=== PATIENT | female | born 1955 | race Caucasian/White ===

== ENCOUNTER 2024-05-29 12:00 | Outpatient (CLI) | payer BC, SELFPAY ==
--- NOTE | 2024-05-29 13:15 | W.ANESCHARGE ---
Anesthesia Charges Start Date/Time Anesthesia Start Date: 05/29/24 Anesthesia Start Time: 13:25 Stop Date/Time Anesthesia Stop Date: 05/29/24 Anesthesia Stop Time: 14:03
--- NOTE | 2024-05-29 14:33 | W.ANESCHARGE ---
Anesthesia Charges Start Date/Time Anesthesia Start Date: 05/29/24 Anesthesia Start Time: 13:25 Stop Date/Time Anesthesia Stop Date: 05/29/24 Anesthesia Stop Time: 14:03
== END 2024-05-29 12:01 | disposition home or self-care (01) ==
LOC: OP CLINIC 12:01
PROVIDERS: PCP Family Medicine; Visit Provider Internal Medicine Gastroenterology
DX: R19.5 Other fecal abnormalities (principal); D12.2 Benign neoplasm of ascending colon; D12.8 Benign neoplasm of rectum; K57.30 Diverticulosis of large intestine without perforation or abscess without bleeding
CPT/HCPCS: 00811; 45385; 88305; J2704

== ENCOUNTER 2025-05-31 11:25 | Day surgery (SDC) | payer BC, SELFPAY ==
[2025-05-31] VITALS (22 sets, daily range): BP systolic 92–149; BP diastolic 59–99; PULSE 54–72; RESP 14–24; TEMP 35.9–36.7; O2SAT 92–99; BMI 40.8
[2025-05-31] MEDS: TRANEXAMIC ACID 100 MG/ML INJ 1000 MG IV (11:41)
[2025-05-31] MEDS: SODIUM CHLORIDE 0.9 % (FLUSH) 10 ML SYRINGE IVF (12:30)
[2025-05-31] MEDS: ACETAMINOPHEN 500 MG TABLET 1000 MG PO ×2 (12:35→18:52)
[2025-05-31] MEDS: LACTATED RINGERS 1000 ML 1,000 ML 100 ML IV (12:35)
[2025-05-31] MEDS: OXYCODONE (CR) 10 MG TAB.ER.12H PO (12:35)
--- NOTE | 2025-05-31 13:06 | W.PM.H&PU ---
History & Physical Update History & Physical Update H&P Reviewed and patient assessed: No changes noted
--- NOTE | 2025-05-31 13:07 | CRLHL7_ITS ---
For Patients: As a result of the Cures Act, medical imaging exams and procedure reports are released immediately into your electronic medical record. You may view this report before your referring provider. If you have questions, please contact your health care provider. INDICATION: Total knee arthroplasty, post operative TECHNIQUE: Knee radiograph 2 views left COMPARISON: 04/23/2025 FINDINGS: Bone: No acute fractures or aggressive bone lesions are identified. Joint: The patient is status post a total knee arthroplasty with patellar resurfacing. No significant knee effusion is seen. Soft tissue: Anterior skin, subcutaneous gas and joint gas are present from recent surgery. No radiopaque foreign bodies are seen. IMPRESSION: 1. There is an unremarkable postoperative appearance of the knee arthroplasty. Dictated by: Zac Izquierdo MD @ 06/03/2025 07:54:51 (Electronically Signed)
[2025-05-31] MEDS: MIDAZOLAM HCL 1 MG/ML inj IVP (13:10)
--- NOTE | 2025-05-31 13:33 | SUR.PREOP ---
TIME?OUT:?1308 PT/RN/MDA?VERIFICATION?OF?SURGICAL?SITE,?PROCEDURE,?AND?CONSENT OBTAINED?PRIOR?TO?INVASIVE?PROCEDURE. all in agreement.
[2025-05-31] MEDS: LACTATED RINGERS 1000 ML 1,000 ML 125 ML IV (14:00)
--- NOTE | 2025-05-31 14:39 | P.ANES_ITS ---
Anesthesia Charges Start Date/Time Anesthesia Start Date: 05/31/25 Anesthesia Start Time: 13:16 Stop Date/Time Anesthesia Stop Date: 05/31/25 Anesthesia Stop Time: 15:33 Coding CPT Codes CPT Codes: ANESTH KNEE ARTHROPLASTY - 53186 ([id number]) P3 - PATIENT W/SEVERE SYS DISEASE, QK - GLAZE HANDLER 2-4 CNCRNT ANES PROC, QX - DEMOLITION HAMMER OPERATOR SVC W/ MD MED DIRECTION
--- NOTE | 2025-05-31 14:39 | W.ANESCHARGE ---
Anesthesia Charges Start Date/Time Anesthesia Start Date: 05/31/25 Anesthesia Start Time: 13:16 Stop Date/Time Anesthesia Stop Date: 05/31/25 Anesthesia Stop Time: 15:33 Coding CPT Codes CPT Codes: ANESTH KNEE ARTHROPLASTY - 70530 ([id number]) P3 - PATIENT W/SEVERE SYS DISEASE, QK - CASING FINISHER AND STUFFER 2-4 CNCRNT ANES PROC, QX - FILTER PRESS TENDER SVC W/ MD MED DIRECTION
--- NOTE | 2025-05-31 14:40 | W.PM.NB ---
Nerve Block Nerve Block Time Seen by Provider: 13:10 Date Seen: 05/31/25 Type of block requested by surgeon for post-operative analgesia: adductor canal Side: left Time out performed: Yes Verification of patient name: Yes Verification of date of : Yes Site marking: site marked Name of person performing procedure: Maurice Continuous monitoring Was continuous monitoring of O2 sat, B/P, cardiac cath technologist, recorded every 15 minutes?: Yes Procedure Checklist: sterile prep, needles and gloves Ultrasound guided. Images saved: Yes Medications given in 5ml increments after negative aspiration: Marcaine %: 0.25 mL: 15 Needle gauge: 20 Precedex (mcg): 25 Patient tolerated procedure well: Yes Block Charges Block Charge (with Pro Fee): Femoral Nerve Use of Ultrasound Machine for Block: Yes- US Guidance/pain block
--- NOTE | 2025-05-31 14:40 | W.PM.NB ---
Nerve Block Nerve Block Time Seen by Provider: 13:10 Date Seen: 05/31/25 Type of block requested by surgeon for post-operative analgesia: geniculars Side: left Time out performed: Yes Verification of patient name: Yes Verification of date of : Yes Site marking: site marked Name of person performing procedure: Maurice Continuous monitoring Was continuous monitoring of O2 sat, B/P, monitoring analyst, recorded every 15 minutes?: Yes Procedure Checklist: sterile prep, needles and gloves Ultrasound guided. Images saved: Yes Medications given in 5ml increments after negative aspiration: Marcaine %: 0.25 mL: 9 Needle gauge: 25 Patient tolerated procedure well: Yes Block Charges Block Charge (with Pro Fee): Genicular Nerve Block
--- NOTE | 2025-05-31 15:22 | P.ORPRC_ITS ---
Procedure Note Date of procedure: 05/31/25 Procedure: PREOPERATIVE DIAGNOSIS: 1. Left knee osteoarthritis, primary, severe 2. Morbid obesity (BMI 40.9) POSTOPERATIVE DIAGNOSIS: 1. Left knee osteoarthritis, primary, severe 2. Morbid obesity (BMI 40.9) PROCEDURE: 1. Left total knee arthroplasty - subvastus; limited tourniquet; Modifier 22 worthy - 33% added difficulty and time for this case due to increased number of assistance and retractors and length of retractors and need for stemmed tibial component to aid in stabilization of the tibial component. SURGEON: Solomon Martinez MD. HELP DESK ANALYST: MAGUE Bowen - Of note, a skilled web press operator assistant was critical for this case to aid in patient positioning, tissue retraction, limb manipulation/positioning, and closure. ANESTHESIA: Spinal anesthetic EBL: 100 ml IMPLANTS: DePuy J&J all cemented TKA - Attune PS femur size 6 narrow Size 5 tibia ([id number] stem) 5 poly spacer 38mm patella TOURNIQUET: 30 min at 250 torr COMPLICATIONS: None evident INDICATIONS: The patient is a pleasant 70-year-old female who has experienced severe left knee pain and difficulty bearing weight. Workup included x-rays which revealed severe osteoarthrosis in the knee. Given the deformity, the dysfunction, and the pain, as well as the failure of nonoperative management, recommendation was made for surgery. FINDINGS: Full-thickness chondral loss throughout the medial and patellofemoral compartment to lesser degree lateral compartment. Degenerative meniscus pathology medial greater than lateral. Large effusion upon entering joint. Abundant synovitis noted throughout the knee. DESCRIPTION OF PROCEDURE: Following a thorough discussion of risks, benefits, and alternatives consent was obtained and the left knee was marked. The patient was brought to the operating room and placed supine on the operating table. Induction of anesthesia was undertaken. 3 g IV Ancef and 1 g tranexamic acid was administered within 1 hr of incision preoperatively. Proper time-out was performed identifying proper patient, site, procedure. The operative extremity was prepped and draped in the appropriate sterile fashion using ChloraPrep after the patient was positioned supine with all bony prominences well padded. A longitudinal, anterior, midline skin incision was made starting approximately 3cm proximal to the superior pole of the patella and advanced distal to the tibial tubercle. A subvastus approach was utilized. A medial subperiosteal sleeve was created with knife, woodall elevator and curved osteotome. The retropatellar fatpad was resected and the synovium in the suprapatellar pouch excised to visualize the anterior femoral cortex. Femoral preparation was performed via an intramedullary guide. Step drill allowed access into the femoral canal. The distal cutting guide was placed with 5? of valgus and 10 mm cut on the distal femur. Femur was sized using a anterior referencing guide in 3? of external rotation. This found have a best fit with the sizing noted above. The 4 in 1 cutting block was then placed, and the distal femur shaped accordingly. The box cut was then created and the trial implant inserted to confirm appropriate fit. We turned our attention to the proximal tibia. Extramedullary guide was utilized for cutting with the goal of being 90 degree cut from the mechanical axis of the tibia in the varus/valgus plane utilizing tibial crest as the primary alignment. Initially a 2 mm resection was performed from the medial tibial plateau. Ultimately, balancing was achieved in both flexion and extension in both varus and valgus. The knee was able to achieve full extension as well comfortably. The patella was initially measured and found have a thickness of 21 mm. It was resected back to approximately 14 mm. It was sized to be a best fit with as noted above. This was drilled, trial placed. All trials were placed and found to have an excellent stability and balance. At this stage, trial implants were removed, the knee was thoroughly irrigated with normal saline, and the cement was mixed. After irrigation, the knee was thoroughly dried, and cement placed, with the real tibial and femoral implants placed along with the patella. Trial poly spacer was placed and confirmed to have excellent range of motion and full extension, and the real poly spacer opened and inserted. All extra cement was removed, and a 3 min Betadine soak performed. Finally, a final irrigation round with normal saline was performed. Closure performed with 0 PDS and #0 Stratafix for the quad tendon/retinaculum. 2-0 Vicryl/Stratafix for the subcutaneous and 4-0 Monocryl for subcuticular closure. Dressings were applied and the patient was awoken from anesthesia after the tourniquet deflated and transferred the PACU in stable condition. A skilled web press operator assistant was critical for this case to aid in patient positioning, tissue retraction, bone exposure, limb manipulation/positioning, patient safety, and closure. PLAN: 1. Weight bear as tolerated operative extremity. 2. 23 hr perioperative antibiotics. 3. Ice. 4. PT/OT consults for ambulation assistance/mobility education. 5. Social work consult for discharge planning. 6. DVT prophylaxis with at SCDs and aspirin twice daily.
--- NOTE | 2025-05-31 16:00 | P.ANES_ITS ---
Anesthesia Charges Start Date/Time Anesthesia Start Date: 05/31/25 Anesthesia Start Time: 13:16 Stop Date/Time Anesthesia Stop Date: 05/31/25 Anesthesia Stop Time: 15:33 Coding CPT Codes CPT Codes: ANESTH KNEE ARTHROPLASTY - 17729 ([id number]) P3 - PATIENT W/SEVERE SYS DISEASE, QK - MULTIMEDIA PRODUCER 2-4 CNCRNT ANES PROC
--- NOTE | 2025-05-31 16:00 | W.ANESCHARGE ---
Anesthesia Charges Start Date/Time Anesthesia Start Date: 05/31/25 Anesthesia Start Time: 13:16 Stop Date/Time Anesthesia Stop Date: 05/31/25 Anesthesia Stop Time: 15:33 Coding CPT Codes CPT Codes: ANESTH KNEE ARTHROPLASTY - 88938 ([id number]) P3 - PATIENT W/SEVERE SYS DISEASE, QK - BRIDGE IRONWORKER 2-4 CNCRNT ANES PROC
--- NOTE | 2025-05-31 16:02 | SUR.PHASEI ---
Patient is very talkative and happy. She denies pain or nausea. Patient meets discharge criteria from PACU.
[2025-05-31] MEDS: LACTATED RINGERS 1000 ML 1,000 ML 75 ML IV (16:43)
[2025-05-31] MEDS: CEFAZOLIN 2 GM in 0.9 % SODIUM CHLORIDE Mini-bag 100 ML IVPB (17:28)
--- NOTE | 2025-05-31 19:34 | PC.NURSE ---
End of Shift: Patient pleasant and cooperative, A&O. VSS, afebrile. SpO2 maintained above 90% on RA. MD notified of Rhonchi when first came up from surgery, no new orders at this time, LSCTA now. Dressing to left knee C/D/I. Pt has not been up since surgery. Incontinent of bladder this shift. Denies pain. Denies N/V. SCD's on.
--- NOTE | 2025-05-31 19:55 | PM.IMCN1 ---
Date of Consult Patient: Rui Patient Consult date: 05/31/25 Requesting Physician: Orthopedics Primary Care Provider: Jules Das MD Consult Narrative Narrative: Yolanda Sfoia is a 70 year old female with a h/o Bipolar 1, anxiety, s/p cardiac ablation for afib, morbid obesity, HTN, COPD, hyperlipidemia, ascending aortic dilitation who underwent an elective LTKA by Dr. Martinez today. Postoperatively she is doing well. She denies significant pain. She is very talkative about her past medical history and of her skilled nursing partner 5 years ago. She has no other complaints or concerns. Review of Systems Status of ROS: Reports: 6 or more systems reviewed and unremarkable except as noted in History and below [facility] Medical History (Updated 05/31/25 @ 20:13 by Lynn Melendrez MD) History of cardioversion ?Z92.89 - Personal history of other medical treatment (ICD-10) Hypertension (11/15/10) ?I10 - Essential (primary) hypertension (ICD-10) Anxiety ?F41.9 - Anxiety disorder, unspecified (ICD-10) A-fib ?I48.91 - Unspecified atrial fibrillation (ICD-10) Adjustment disorder ?F43.20 - Adjustment disorder, unspecified (ICD-10) Bipolar 1 disorder ?F31.9 - Bipolar disorder, unspecified (ICD-10) AYUSH on CPAP ?G47.33 - Obstructive sleep apnea (adult) (pediatric) (ICD-10) Fatty liver ?K76.0 - Fatty (change of) liver, not elsewhere classified (ICD-10) Nonrheumatic mitral valve regurgitation ?I34.0 - Nonrheumatic mitral (valve) insufficiency (ICD-10) Ascending aorta dilatation ?I77.810 - Thoracic aortic ectasia (ICD-10) Morbid obesity with BMI of 40.0-44.9, adult ?E66.01 - Morbid (severe) obesity due to excess calories (ICD-10) ?Z68.41 - Body mass index [BMI] 40.0-44.9, adult (ICD-10) High cholesterol ?E78.00 - Pure hypercholesterolemia, unspecified (ICD-10) COPD (chronic obstructive pulmonary disease) ?J44.9 - Chronic obstructive pulmonary disease, unspecified (ICD-10) Surgical History (Updated 05/31/25 @ 20:14 by Lynn Melendrez MD) H/O cardiac ablation (~11/2024) ?Z98.890 - Other specified postprocedural states (ICD-10) History of arthroplasty of left knee (05/31/25) ?Z96.652 - Presence of left artificial knee joint (ICD-10) Hx of tubal ligation ?Z98.51 - Tubal ligation status (ICD-10) Hx of nasal septoplasty ?Z98.890 - Other specified postprocedural states (ICD-10) Family History Sister Breast cancer Mother Diabetes Social History (Updated 05/31/25 @ 20:03 by Lynn Melendrez MD) Narrative: former smoker-2013. Denies current tobacco use. EtOH: 3 drinks 3-4 nights per week, none for a week in preparation for surgery. Denies current recreational drug use. What is your current living situation?: I presently have a place to live Problems where you live: no known problems In the past 12 months, utilities in danger of being shut off: no In past 12 months, lack of transportation kept you from medical appts, meetings, work, or getting things needed for daily living: no In the past 12 mos, have been you worried that your food would run out before you had money to buy more?: never true In the past 12 mos, the food you bought just didn't last and you didn't have money to buy more?: never true Smoking Status: Former smoker What tobacco products do you use: cigarettes Smoking quit date/years: <= 15 years ago Do you use any of these nicotine containing products: None Second hand tobacco smoke exposure: No How often do you have a drink containing alcohol: 2-3 times a week Alcohol type: wine and hard liquor How many standard drinks containing alcohol do you have on a typical day: 1 or 2 AUDIT-C Alcohol total score: 3 Non-prescribed substance use: denies use How often does anyone, including family, friends and others, physically hurt you: never How often does anyone, including family, friends and others, insult or talk down to you: never How often does anyone, including family, friends and others, threaten you with harm: never How often does anyone, including family, friends and others, scream or curse at you: never Are you using contraception or practicing any form of control: No Meds Home Medications and Allergies Home Medications ?Medication ?Instructions ?Recorded ?Confirmed ?Type cetirizine 10 mg tablet (All Day 10 mg PO DAILY PRN 12/19/21 05/31/25 History Allergy (cetirizine)) fluticasone propionate 50 1 spray intranasal DAILY 12/19/21 05/31/25 History mcg/actuation nasal spray,suspension hydrochlorothiazide 25 mg tablet 25 mg PO DAILY 12/19/21 05/31/25 History amlodipine 10 mg tablet 10 mg PO DAILY 09/03/23 05/31/25 History atorvastatin 40 mg tablet 40 mg PO HS 09/03/23 05/31/25 History fluticasone 113 mcg-salmeterol 14 1 inh inhalation BID 09/03/23 05/31/25 History mcg/actuation breath activated powdr olopatadine 0.2 % eye drops 1 drp ophthalmic (eye) DAILY 09/03/23 05/31/25 History umeclidinium 62.5 mcg/actuation 1 inh inhalation DAILY 09/03/23 05/31/25 History blister powder for inhalation (Incruse Ellipta) apixaban 5 mg tablet (Eliquis) 5 mg PO BID 06/25/24 05/31/25 History spironolactone 25 mg tablet 25 mg PO DAILY 06/25/24 05/31/25 History metoprolol succinate 50 mg 50 mg PO DAILY 04/23/25 05/31/25 History tablet,extended release 24 hr tirzepatide (weight loss) 7.5 7.5 mg subcut .WEEKLY 04/23/25 05/31/25 History mg/0.5 mL subcutaneous pen injector (Zepbound) albuterol sulfate 90 mcg/actuation 2 puff inhalation QID PRN 05/18/25 05/31/25 History aerosol inhaler cholecalciferol (vitamin D3) 10 10 mcg PO DAILY 05/18/25 05/31/25 History mcg (400 unit) capsule cyanocobalamin (vitamin B-12) 1,000 mcg PO DAILY 05/18/25 05/31/25 History 1,000 mcg capsule acetaminophen 500 mg capsule 500 - 1,000 mg (1 - 2 x 500 mg) PO 05/31/25 Rx Q6H PRN #100 caps oxycodone 5 mg tablet 2.5 - 5 mg (0.5 - 1 x 5 mg) PO 05/31/25 Rx Q4-6H PRN pain #42 tabs sennosides 8.6 mg-docusate sodium 1 - 4 tab-cap (1 - 4 x 8.6-50 mg) 05/31/25 Rx 50 mg tablet (Senna-S) PO BID PRN constipation #60 tabs Allergies Allergy/AdvReac Type Severity Reaction Status Date / Time ciprofloxacin Allergy thoracic Verified 05/31/25 11:53 aortic aneurysm venlafaxine (From Effexor) Allergy Verified 05/31/25 11:53 sesonal allergies Allergy Uncoded 04/23/25 09:17 Exam Narrative: Exam Narrative: General: No acute distress. Awake alert oriented x3. Pressured speech. Poor eye contact. Frequent blinking/squeezing eyelids closed/tic noted. Thinks positively and talks excitedly about rehabing. HEENT: Normocephalic atraumatic, pupils equally round and reactive to light and accommodation. Oropharynx clear. Mucous membranes are moist. No cervical lymphadenopathy, thyromegaly or carotid bruits. No JVD. Cardiovascular: Regular rate and rhythm. No murmurs, gallops, or rubs. Chest: No increased work of breathing. Clear to auscultation bilaterally. No crackles or wheezes. Abdomen: Bowel sounds present. Soft, nondistended, nontender. No hepatosplenomegaly or masses. Extremities: Left knee bandages are C/D/I. No edema, no cyanosis or clubbing. Skin: No jaundice, no pallor, no rashes on visible skin. Const: Vital Signs, click to edit/add: Vital Signs - 24 hr 05/31/25 12:16 05/31/25 13:10 05/31/25 15:31 Temperature 97.5 F L 98.0 F Pulse Rate 70 58 L 67 Pulse Rate [Right Pulse Oximeter] Respiratory Rate 20 16 16 Blood Pressure 149/95 H 147/83 H 121/79 Blood Pressure [Ri ght Arm] Pulse Oximetry 99 98 96 Oxygen Delivery Me thod Room Air Nasal Cannula Room Air Oxygen Flow Rate 2 05/31/25 15:35 05/31/25 15:40 05/31/25 15:45 Temperature Pulse Rate 68 67 66 Pulse Rate [Right Pulse Oximeter] Respiratory Rate 14 16 24 Blood Pressure 128/75 126/79 126/81 Blood Pressure [Ri ght Arm] Pulse Oximetry 92 95 95 Oxygen Delivery Me thod Room Air Oxygen Flow Rate 05/31/25 15:50 05/31/25 15:55 05/31/25 16:00 Temperature 98.0 F Pulse Rate 66 58 L 60 Pulse Rate [Right Pulse Oximeter] Respiratory Rate 24 20 16 Blood Pressure 110/72 125/76 123/82 Blood Pressure [Ri ght Arm] Pulse Oximetry 96 94 94 Oxygen Delivery Me thod Room Air Oxygen Flow Rate 05/31/25 16:03 05/31/25 16:15 05/31/25 16:30 Temperature 96.6 F L Pulse Rate 60 Pulse Rate [Right Pulse Oximeter] 57 L 56 L Respiratory Rate 23 16 16 Blood Pressure 123/82 Blood Pressure [Ri ght Arm] 114/69 115/81 Pulse Oximetry 94 92 95 Oxygen Delivery Me thod Room Air Room Air Oxygen Flow Rate 05/31/25 16:45 05/31/25 17:00 05/31/25 17:15 Temperature 96.6 F L 97.1 F L Pulse Rate Pulse Rate [Right Pulse Oximeter] 54 L 60 59 L Respiratory Rate 16 16 Blood Pressure Blood Pressure [Ri ght Arm] 110/73 109/73 120/72 Pulse Oximetry 98 97 Oxygen Delivery Me thod Room Air Room Air Oxygen Flow Rate 05/31/25 17:30 05/31/25 18:00 Temperature 97.3 F L 97.6 F Pulse Rate Pulse Rate [Right Pulse Oximeter] 70 63 Respiratory Rate 16 16 Blood Pressure Blood Pressure [Ri ght Arm] 121/99 H 106/59 L Pulse Oximetry 96 96 Oxygen Delivery Me thod Room Air Room Air Oxygen Flow Rate Assessment and Plan Assessment and plan (1) History of arthroplasty of left knee: Problem comment: Left total knee arthroplasty - subvastus (05/31/2025, Dr. Martinez) - VTE prophylaxis with Eliquis (which patient takes for afib) Status: Acute (2) Osteoarthritis of left knee: Problem comment: Left knee osteoarthritis, primary, severe [id number] with genu varum position Status: Chronic (3) Obesity (BMI 30-39.9): Status: Chronic (4) Anxiety: Status: Chronic (5) A-fib: Problem comment: - Recent cardiac ablation - monitor on satellite project site monitor overnight - continue metoprolol - I have contacted ortho and am waiting to hear back: likely restart Eliquis for afib in am. Status: Chronic (6) Hypertension: Problem comment: BPs low this evening. Continuing metoprolol for h/o afib. Hold amlodipine, HCTZ and spironolactone tonight and tomorrow. Status: Chronic
[2025-05-31] MEDS: SENNOSIDES 1 TAB TABLET 2 TAB PO (22:03)
[2025-05-31] MEDS: ATORVASTATIN CALCIUM 40 MG TABLET PO (22:04)
[2025-06-01] MEDS: ACETAMINOPHEN 500 MG TABLET 1000 MG PO ×2 (00:23→08:00)
[2025-06-01 03:30] VITALS: BP 114/65; PULSE 59; RESP 16; TEMP 36.4; O2SAT 98
[2025-06-01] MEDS: CEFAZOLIN 2 GM in 0.9 % SODIUM CHLORIDE Mini-bag 100 ML IVPB ×2 (03:36→09:38)
[2025-06-01 07:00] VITALS: BP 132/73; PULSE 65; RESP 18; TEMP 37.1; O2SAT 98
--- NOTE | 2025-06-01 07:24 | PC.NURSE ---
The patient is plesant and cooperative with cares. L knee dressing is CDI, reports pain at a tolerable level throughout the night. Up and walked in the room w/ Ax1, GB and walker. VSS on RA, wears her CPAP overnight. The patient expresses she is happy and glad that she will be feeling better after getting the replacement. Purewick in place overnight. Sobeida VALENTE BSN
[2025-06-01 07:45] VITALS: PULSE 59; PULSE 65; RESP 18
[2025-06-01] MEDS: METOPROLOL SUCCINATE (XL) 50 MG TAB PO (08:02)
[2025-06-01] MEDS: SENNOSIDES 1 TAB TABLET 2 TAB PO (09:37)
[2025-06-01] MEDS: APIXABAN 5 MG TABLET PO (09:37)
[2025-06-01 11:00] VITALS: BP 121/73; PULSE 65; RESP 18; TEMP 37.1; O2SAT 100
--- NOTE | 2025-06-01 11:49 | PM.ORPN ---
Subjective Subjective Date Seen: 06/01/25 Principal diagnosis: Status postop day 1 left total knee arthroplasty Interval history: Patient reports doing well. She is very happy with her progress thus far including walking in the hallway with PT. No acute events over night. Pain managed with scheduled and PRN medications, ice. DVT prophylaxis: Eliquis, which she is on for AFib, SCDs, walking. Denies fevers, chills, aches, N/V, CP, SOB/COUGHLIN, or lightheadedness. Ortho Exam Narrative Exam Narrative: -Pressured speech which is typical for patient -Patient appears comfortable; no apparent acute distress -Alert and oriented times 3 -Operative knee moderately swollen; soft tissues supple; no ecchymosis; no erythematous streaking Warmth appropriate -Surgical dressing clean, dry, intact; no drainage -Bilateral calves soft; no significant swelling, edema, tenderness, erythema, discoloration, warmth, or palpable cords -2+ DP/PT pulses, intact dermatomes and myotomes distally (5/5 strength) Const Vital Signs, click to edit/add: Vital Signs - 24 hr 05/31/25 12:16 05/31/25 13:10 05/31/25 15:31 Temperature 97.5 F L 98.0 F Pulse Rate 70 58 L 67 Pulse Rate [Right Pulse Oximeter] Respiratory Rate 20 16 16 Blood Pressure 149/95 H 147/83 H 121/79 Blood Pressure [Left Arm] Blood Pressure [Right Arm] Pulse Oximetry 99 98 96 Oxygen Delivery Method Room Air Nasal Cannula Room Air Oxygen Flow Rate 2 05/31/25 15:35 05/31/25 15:40 05/31/25 15:45 Temperature Pulse Rate 68 67 66 Pulse Rate [Right Pulse Oximeter] Respiratory Rate 14 16 24 Blood Pressure 128/75 126/79 126/81 Blood Pressure [Left Arm] Blood Pressure [Right Arm] Pulse Oximetry 92 95 95 Oxygen Delivery Method Room Air Oxygen Flow Rate 05/31/25 15:50 05/31/25 15:55 05/31/25 16:00 Temperature 98.0 F Pulse Rate 66 58 L 60 Pulse Rate [Right Pulse Oximeter] Respiratory Rate 24 20 16 Blood Pressure 110/72 125/76 123/82 Blood Pressure [Left Arm] Blood Pressure [Right Arm] Pulse Oximetry 96 94 94 Oxygen Delivery Method Room Air Oxygen Flow Rate 05/31/25 16:03 05/31/25 16:15 05/31/25 16:30 Temperature 96.6 F L Pulse Rate 60 Pulse Rate [Right Pulse Oximeter] 57 L 56 L Respiratory Rate 23 16 16 Blood Pressure 123/82 Blood Pressure [Left Arm] Blood Pressure [Right Arm] 114/69 115/81 Pulse Oximetry 94 92 95 Oxygen Delivery Method Room Air Room Air Oxygen Flow Rate 05/31/25 16:45 05/31/25 17:00 05/31/25 17:15 Temperature 96.6 F L 97.1 F L Pulse Rate Pulse Rate [Right Pulse Oximeter] 54 L 60 59 L Respiratory Rate 16 16 Blood Pressure Blood Pressure [Left Arm] Blood Pressure [Right Arm] 110/73 109/73 120/72 Pulse Oximetry 98 97 Oxygen Delivery Method Room Air Room Air Oxygen Flow Rate 05/31/25 17:30 05/31/25 18:00 05/31/25 19:05 Temperature 97.3 F L 97.6 F 97.8 F Pulse Rate Pulse Rate [Right Pulse Oximeter] 70 63 72 Respiratory Rate 16 16 18 Blood Pressure Blood Pressure [Left Arm] Blood Pressure [Right Arm] 121/99 H 106/59 L 102/92 H Pulse Oximetry 96 96 94 Oxygen Delivery Method Room Air Room Air Room Air Oxygen Flow Rate 05/31/25 20:00 05/31/25 21:00 05/31/25 22:53 Temperature 97.8 F Pulse Rate Pulse Rate [Right Pulse Oximeter] 70 65 63 Respiratory Rate 18 18 18 Blood Pressure Blood Pressure [Left Arm] Blood Pressure [Right Arm] 92/62 119/77 111/77 Pulse Oximetry 95 97 97 Oxygen Delivery Method Room Air Oxygen Flow Rate 05/31/25 23:00 05/31/25 23:00 05/31/25 23:00 Temperature Pulse Rate 64 Pulse Rate [Right Pulse Oximeter] Respiratory Rate 18 Blood Pressure Blood Pressure [Left Arm] Blood Pressure [Right Arm] Pulse Oximetry 96 Oxygen Delivery Method CPAP Oxygen Flow Rate 06/01/25 03:30 06/01/25 07:00 06/01/25 07:45 Temperature 97.5 F L 98.7 F Pulse Rate 59 L Pulse Rate [Right Pulse Oximeter] 59 L 65 Respiratory Rate 16 18 Blood Pressure Blood Pressure [Left Arm] 132/73 Blood Pressure [Right Arm] 114/65 Pulse Oximetry 98 98 Oxygen Delivery Method Room Air Room Air Oxygen Flow Rate 06/01/25 07:45 Temperature Pulse Rate Pulse Rate [Right Pulse Oximeter] 65 Respiratory Rate 18 Blood Pressure Blood Pressure [Left Arm] Blood Pressure [Right Arm] Pulse Oximetry Oxygen Delivery Method Oxygen Flow Rate Assessment and Plan Assessment and plan (1) History of arthroplasty of left knee: Problem details: Left total knee arthroplasty - subvastus (05/31/2025, Dr. 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 Status: Chronic (6) Hypertension: Problem details: BPs low this evening. Continuing metoprolol for h/o afib. Hold amlodipine, HCTZ and spironolactone tonight and tomorrow. Status: Chronic Plan - Complete 23 hour perioperative antibiotics. - PT/OT consult for education and assistance. - Social work consult for discharge planning - Prescribed analgesics as needed - DVT prophylaxis: 5 mg Eliquis b.i.d., walking, and SCDs - Anticipation is for discharge to home with friend today 06/01/2025 if the patient remains medically stable, pain is controlled, and they are safe with mobilization.
--- NOTE | 2025-06-01 12:31 | PC.NURSE ---
Nursing Care Hours: [id number] Pt this shift alert and oriented, very talkative and pleasant. Pain tolerable. CMS intact. Ax1 with walker. Handed off pt to oncoming nurse.
== END 2025-06-01 11:40 | disposition home or self-care (01) ==
LOC: OR 11:26 → MEDSURG 11:27 → OR 11:27 → MEDSURG 16:16
PROVIDERS: PCP Family Medicine; Visit Provider Orthopaedic Surgery Sports Medicine
PROC: (CPT 27447; principal; 2025-05-31 13:00)
DX: M17.12 Unilateral primary osteoarthritis, left knee (principal); E66.01 Morbid (severe) obesity due to excess calories; Z68.41 Body mass index [BMI] 40.0-44.9, adult; G89.18 Other acute postprocedural pain; I10 Essential (primary) hypertension; J44.9 Chronic obstructive pulmonary disease, unspecified; G47.33 Obstructive sleep apnea (adult) (pediatric); F31.9 Bipolar disorder, unspecified; F41.9 Anxiety disorder, unspecified; I48.91 Unspecified atrial fibrillation
CPT/HCPCS: 27447; 01402; 64447; 64454; 73560; 76942; 97110; 97116; 97161; 97165; 97530; 97535; A9270; C1776; J0665; J0690; J1100; J2250; J2371; J2405; J2704; J3010; J7120